=== PATIENT | female | born 1940 | race Caucasian/White ===

== ENCOUNTER 2016-12-17 12:22 | Observation (INO) | payer BC ==
--- NOTE | ~2016-12-17 | OP ---
Record Of Operation [facility] [address] [place]. [address] NAME: LAKESHIA SPANGLER : 44 STATUS : REG REF PAT#: [id number] AGE: 76 ADM/REG DATE : 12/17/16 MR#: [id number] REPORT SERV DATE: 12/17/16 DICTATED BY: SYED SINCLAIR DATE: 12/17/16 REPORT STATUS : Draft TRANSCRIBED BY: MODL DATE: 12/17/16 DATE OF PROCEDURE: 12/17/2016 CARDIAC CATHETERIZATION REPORT INDICATION: Acute myocardial infarction/non-ST elevation CT. PROCEDURES: Left heart catheterization, coronary arteriography, left ventriculography, PCI/stent to 95% mid LAD. DESCRIPTION OF PROCEDURE: After informed consent was obtained, the patient was taken in a fasting state to the cardiac catheterization laboratory where she was prepped and draped in a sterile fashion. Conscious sedation was obtained using intravenous Versed and fentanyl. The right inguinal region was anesthetized using 1% Xylocaine. The right femoral artery was then entered using a front wall approach and cannulated with 6-Bangladeshi arterial sheath. A 6- Bangladeshi JL4 diagnostic catheter was used to engage the left main coronary artery. A 6-Bangladeshi Miguelangel right catheter was used to engage the right coronary artery. A 6-Bangladeshi angled pigtail catheter was used across the aortic valve at which time a left ventriculogram was performed. The catheter was then withdrawn back across the aortic valve with no significant aortic transvalvular gradient. Results of diagnostic angiography are as follows: HEMODYNAMICS: Aorta 170/60 with a mean pressure of 97 mmHg. Left ventricle 174/2 with end- diastolic pressure of 16 mmHg. CORONARY ANATOMY: 1. Left main coronary artery: The left main coronary artery arises normally from the left coronary cusp. This vessel is free of significant disease. 2. Left anterior descending artery: The left anterior descending artery arises normally from the left main coronary artery. This vessel is diffusely diseased with a long tapering midvessel stenosis to 95%. The remainder of the vessel has diffuse luminal irregularities to 20%. 3. Ramus intermedius: The ramus intermedius arises normally from the left main coronary artery. This is a small caliber vessel, which is free of significant disease. 4. Left circumflex artery: The left circumflex artery arises normally from the left main coronary artery. This vessel is nondominant. This vessel has luminal irregularities to 20%. 5. Right coronary artery: The right coronary artery arises normally from the right coronary cusp. This vessel has luminal irregularities in the mid segment to 30%. LEFT VENTRICULOGRAM: Left ventriculogram was performed, which showed normal symmetric left ventricular contractility and an ejection fraction of 55%. There was no significant mitral insufficiency. After the above findings, it was decided to proceed with PCI/stenting of the discrete 95% mid LAD stenosis. Record Of Operation [facility] [address] [place]. [address] NAME: LAKESHIA SPANGLER : 44 STATUS : REG REF PAT#: [id number] AGE: 76 ADM/REG DATE : 12/17/16 MR#: [id number] REPORT SERV DATE: 12/17/16 DICTATED BY: SYED SINCLAIR DATE: 12/17/16 REPORT STATUS : Draft TRANSCRIBED BY: KYLAH DATE: 12/17/16 A 6-Bangladeshi JL4 guiding catheter was used with a ChoICE PT 0.014 x 182 cm extra support wire to cross the lesion. A [place] [employer] Synergy 3.0 x 16 mm drug-eluting stent was then carefully positioned and deployed using 11 atmospheres for 20 seconds. An additional inflation was performed at 16 atmospheres for 20 seconds. Repeat angiography revealed a 0% residual stenosis with no dissection, flap, thrombus, embolization, or occlusion apparent. COMPLICATIONS: There were no apparent complications. CONCLUSIONS: 1. Multivessel coronary artery disease as described above. Flow-limiting disease of the mid LAD - culprit lesion. 2. Normal left ventricular systolic function. No significant mitral insufficiency. 3. Successful PCI/stent of 95% mid LAD stenosis to 0% residual stenosis using a [place] [employer] Synergy 3.0 x 16 mm drug-eluting stent. 4. No apparent complications. SA/ARNALDOL Syed Sinclair M.D., [facility] / [id number] CC: Syed Sinclair M.D., [facility] Preeti Wu DO
--- NOTE | ~2016-12-17 | HP ---
History And Physical [address] [place]. [address] NAME: LAKESHIA LEBRON : 44 STATUS : REG REF PAT#: [id number] AGE: 76 ADM/REG DATE : 12/17/16 MR#: [id number] REPORT SERV DATE: 12/17/16 DICTATED BY: SYED SINCLAIR DATE: 12/17/16 REPORT STATUS : Draft TRANSCRIBED BY: MODL DATE: 12/17/16 DATE OF ADMISSION: 12/17/2016 HISTORY OF PRESENT ILLNESS: Ms. Lakeshia Lebron is a 76-year-old female without past known cardiac history, who presented to [facility] Emergency Room complaining of substernal discomfort. The patient denies chest pain, instead describing a "chest tightness or heaviness." She reports that it occurred initially last night and she decided that it was indigestion. It then reoccurred earlier this morning while walking her dog. She then sought attention. She reports some radiation and shortness of breath. She noted no nausea. She did have some questionable diaphoresis. REVIEW OF SYSTEMS: The patient denies any orthopnea, lower extremity edema, syncope, presyncope, orthopnea, or paroxysmal nocturnal dyspnea. She denies any gastrointestinal, genitourinary, or neurologic complaints. FAMILY HISTORY: Extensive for premature coronary artery disease. The patient's brother had a stent at an early age. Her mother had an AR at an early age. Her father from a "massive heart attack." ALLERGIES: PENICILLIN. SOCIAL HISTORY: The patient quit smoking in 1985. MEDICATIONS: See list. PAST MEDICAL HISTORY: Significant for appendectomy and hysterectomy. She reports no history of hypertension or hyperlipidemia. PHYSICAL EXAMINATION: VITAL SIGNS: Stable. The patient is afebrile. GENERAL: This is a well-developed, well-nourished 76-year-old white female, alert and oriented x3, in no acute distress. NECK: No jugular venous distention, hepatojugular reflux, or carotid bruits. CARDIOVASCULAR: Normal rate with regular rhythm. No murmur, gallop, click, or rub. LUNGS: Clear to auscultation without wheezes, rales, or rhonchi. ABDOMEN: Soft, nontender, and nondistended. Positive bowel sounds. EXTREMITIES: Without clubbing, cyanosis, or edema. LABORATORY DATA: Troponin is elevated at 0.2. EKG significant for anterior lateral T-wave inversion and borderline anterior ST-segment elevation. ASSESSMENT: 1. Acute coronary syndrome/hjz-RB-dziunyi elevation myocardial infarction. History And Physical [address] [address] NAME: LAKESHIA LEBRON : 44 STATUS : REG REF PAT#: [id number] AGE: 76 ADM/REG DATE : 12/17/16 MR#: [id number] REPORT SERV DATE: 12/17/16 DICTATED BY: SYED SINCLAIR DATE: 12/17/16 REPORT STATUS : Draft TRANSCRIBED BY: KYLAH DATE: 12/17/16 2. Coronary artery disease. 3. Hypertension. PLAN: 1. See orders. 2. Proceed with left heart catheterization and probable PCI. /KYLAH Syed Sinclair M.D., [facility] / [id number] CC: Syed Sinclair M.D., [facility] Preeti Wu DO
[~2016-12-17 12:22] MED LIST: ALEVE220 MG PO; LEVOTHYROXIN125 MCG PO; MUCINEX1200 MG PO; MULTIVITAMI1 PO; PRESERVISION A1 EACH PO; PRILOSEC40 MG PO; TYLENOL SIN1 PO; WELL100 PO; WELL75 PO; Wellbutrin PO; ZOLOFT25 MG PO; ZYRTEC ALLGY10 MG PO; [UNRECOGNIZED DRUG - REMARK]; [UNRECOGNIZED DRUG - REMARK] PO
[2016-12-17] MEDS ORDERED: RED YEAS1 PO (14:51)
[2016-12-17] MEDS ORDERED: VITAMIN D2000 UNIT PO (14:51)
[2016-12-17] MEDS ORDERED: CO Q-10100 MG PO (14:52)
[2016-12-18] MEDS ORDERED: COREG3 PO (13:48)
[2016-12-18] MEDS ORDERED: ALTA2.5 (13:49)
[2016-12-18] MEDS ORDERED: LIPITOR40 PO (13:49)
[2016-12-18] MEDS ORDERED: BRILINTA90 MG PO (13:59)
== END 2016-12-18 15:08 | disposition home or self-care (01) ==
LOC: CORLMH 12:22 → SSU1 13:33
PROC: 4A023N7 Measurement of Cardiac Sampling and Pressure, Left Heart, Percutaneous Approach (ICD-10-PCS; principal; 2016-12-17)
PROC: B2111ZZ Fluoroscopy of Multiple Coronary Arteries using Low Osmolar Contrast (ICD-10-PCS; 2016-12-17)
PROC: 027034Z Dilation of Coronary Artery, One Artery with Drug-eluting Intraluminal Device, Percutaneous Approach (ICD-10-PCS; 2016-12-17)
DX: I25.10 Atherosclerotic heart disease of native coronary artery without angina pectoris (principal); I10 Essential (primary) hypertension; E78.5 Hyperlipidemia, unspecified; Z82.49 Family history of ischemic heart disease and other diseases of the circulatory system; Z87.891 Personal history of nicotine dependence; Z88.0 Allergy status to penicillin; Z79.899 Other long term (current) drug therapy; I24.9 Acute ischemic heart disease, unspecified; K21.9 Gastro-esophageal reflux disease without esophagitis
CPT/HCPCS: 71020; 80048; 83735; 84484; 85025; 85610; 85730; 93005; 93458; 99152; 99153; 99291; A9270-GY; C1769; C1874; C1887; C1894; C9600; G0378; J0583; J2250; J2405; J3010; Q9967